=== PATIENT | female | born 1985 | race Caucasian/White ===

== ENCOUNTER 2017-03-22 13:28 | Emergency (ER) | payer OTHER, MEDICARE | END 2017-03-22 14:30 | disposition home or self-care (01) | LOC: ER1 13:28 | DX: R21 Rash and other nonspecific skin eruption (principal); F19.10 Other psychoactive substance abuse, uncomplicated; I10 Essential (primary) hypertension; F17.210 Nicotine dependence, cigarettes, uncomplicated | CPT/HCPCS: 99282 ==